=== PATIENT | female | born 1945 | race Caucasian/White ===

== ENCOUNTER → 2023-11-22 12:31 | Outpatient (REF) | payer MEDICARE, OTHER, SELFPAY | LOC: HWRAD 12:31 | PROVIDERS: ATTENDING PHYSICIAN Otolaryngology; FAMILY PHYSICIAN Family Medicine | DX: J32.4 Chronic pansinusitis (principal) | CPT/HCPCS: 70486 ==

== ENCOUNTER → 2023-12-10 17:43 | Outpatient (REF) | payer MEDICARE, OTHER, SELFPAY | LOC: CLAB 17:43 | PROVIDERS: ATTENDING PHYSICIAN Otolaryngology | DX: J33.0 Polyp of nasal cavity (principal) | CPT/HCPCS: 88311 ==